=== PATIENT | male | born 1975 | race Caucasian/White ===

== ENCOUNTER 2020-11-03 10:34 | Emergency (ER) | payer BC, SELFPAY ==
--- NOTE | ~2020-11-03 | US_ITS ---
EXAMINATION:US venous doppler LE RT INDICATION:Right lower extremity pain TECHNIQUE: Multiple grayscale, color flow and Doppler images of the right lower extremity deep venous systems were obtained and reviewed. COMPARISON:No prior studies for comparison. FINDINGS: The common femoral, superficial femoral and popliteal veins demonstrate normal respiratory variation, augmentation and compressibility. Color flow is also seen within the posterior tibial, pe roneal, greater saphenous and profunda veins. There is right groin lymphadenopathy with lymph node me asuring 4.4 x 3.6 x 1.5 cm. IMPRESSION: 1: No lower extremity deep venous thrombosis. 2: Right groin lymphadenopathy, likely reactive. Reviewed, dictated and finalized at location B.
[2020-11-03 11:16] VITALS: BP 113/81; PULSE 86; RESP 16; TEMP 36.4; O2SAT 95
[2020-11-03 11:37] LABS: Basophils Absolute Auto 0.1 K/mm3 (0.0-0.1); Basophils Percent Auto 0.7 % (0.2-1.2); Eosinophils Absolute Auto 0.2 K/mm3 (0-0.3); Eosinophils Percent Auto 1.8 % (0-4.4); Hemoglobin 16.3 g/dL (14.0-18.0); Immature Granulocyte Absolute 0.05 K/mm3 (0.00-0.031); Immature Granulocyte Percent A 0.5 % (0-0.5); Lymphocytes Absolute Auto 1.46 K/mm3 (0.9-3.2); Mean Corpuscular Hemoglobin 31.6 pg (26-34); Monocytes Absolute Auto 1.1 K/mm3 (0.1-0.6); Monocytes Percent Auto 11.4 % (2.6-8.5); Neutrophils Absolute Auto 6.9 K/mm3 (1.3-6.7); Neutrophils Percent Auto 70.6 % (45.5-73.1); Platelet Count Result 225 k/mm3 (150-375); Red Blood Count 5.16 M/mm3 (4.6-6.20); Red Cell Distribution Width 13.4 % (11.5-14.5); White Blood Count 9.8 K/mm3 (4.5-10.0)
[2020-11-03 11:46] LABS: Anion Gap 11 mmol/L (8-16); Blood Urea Nitrogen 12 mg/dL (9-20); Calcium 9.6 mg/dL (8.4-10.2); Carbon Dioxide 27 mmol/L (22-30); Chloride 100 mmol/L (98-107); Estimated CRCL calculation 132 ml/min; Estimated Glomerular Filt Rate > 60; Glucose 122 mg/dL (75-110); Potassium 3.4 mmol/L (3.4-5.0); Sodium 138 mmol/L (137-145)
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
[2020-11-03] MEDS: CLINDAMYCIN HCL 150 MG CAP 300 MG PO (12:15)
[2020-11-03 12:53] VITALS: BP 127/80; PULSE 82; RESP 16; O2SAT 97
== END 2020-11-03 12:55 | disposition home or self-care (01) ==
PROVIDERS: Emergency Provider Emergency Medicine; PCP Family Medicine
DX: L03.115 Cellulitis of right lower limb (principal); E78.5 Hyperlipidemia, unspecified; I10 Essential (primary) hypertension; Z87.820 Personal history of traumatic brain injury
CPT/HCPCS: 36415; 80048; 85025; 93971; 99284; A9270

== ENCOUNTER 2022-11-21 15:07 | Observation (INO) | payer BC, SELFPAY ==
--- NOTE | ~2022-11-21 | XR_ITS ---
EXAMINATION: XR retrograde pyelo w/stent LT DATE: 11/22/2022 16:30 INDICATION: Left retrograde ureteral stent placement. TECHNIQUE: 7 fluoroscopic images of the abdomen and pelvis were obtained during procedure performed catalina Hernández. Radiologist was not present for the imaging or procedure. The amount of fluoroscopy time used during this procedure was 0.7 minutes. COMPARISON: 11/22/2022 FINDINGS: No significant change in a small stone in the mid right left ureter projecting near the lateral tip o f the left transverse process of L4. Subsequent images demonstrate catheterization and retrograde con trast injection into the left ureter and renal collecting system. A wire has been advanced into the l eft renal pelvis with subsequent placement of a left internal ureteral stent which is in expected pos ition with loops formed in the left renal pelvis and in the bladder. The ureteral stone is not identi fied on the postcontrast images, unclear whether this is been removed or reflux into the left renal c ollecting system. IMPRESSION: 1. Left ureteral stone with fluoroscopy utilized during left internal ureteral stent placement in exp ected position. Unclear whether the stone has been extracted and would correlate with procedure note for further detail. Reviewed, dictated and finalized at location A. IMPRESSION: 1. Left ureteral stone with fluoroscopy utilized during left internal ureteral stent placement in expected position. Unclear whether the stone has been extrac israel and would correlate with procedure note for further detail.
--- NOTE | ~2022-11-21 | XR_ITS ---
Supine and upright views of the abdomen Clinical history: Preoperative Findings: Bowel gas pattern is nonspecific. No evidence for obstruction or free air. Suspected 4 mm m id left ureteral stone, projecting just lateral of the left L4 transverse process. Additional left lo wer pole renal stone measures 7 mm. IVC filter present. Osseous structures are intact. Impression: Suspected left renal and left ureteral stones, as detailed above. Reviewed, dictated and finalized at location . Impression: Suspected left renal and left ureteral stones, as detailed above.
--- NOTE | ~2022-11-21 | CT_ITS ---
EXAMINATION: CT abdomen pelvis w con DATE: 11/21/2022 16:46 INDICATION: left lower abdominal pain TECHNIQUE: Computed tomography (CT) of the abdomen and pelvis was performed with 100 mL Omnipaque-350 intravenous contrast. Automated exposure control and iterative reconstruction technique were employe d. The dose-length product was 773.76 mGy-cm. COMPARISON: None. FINDINGS: Lower thorax: Bilateral gynecomastia. Mild bibasilar scar/atelectasis. Mild coronary artery calcifica tion. Liver: Normal. Biliary/Gallbladder: Cholelithiasis. No bile duct dilation. Pancreas: No mass or duct dilation. Spleen: Normal. Adrenals:No mass. Kidneys: Delayed left nephrogram. Mild left pelviectasis and caliectasis. 5 x 7 mm stone in the proxi mal left ureter multiple additional nonobstructing bilateral renal calculi are present. No suspicious renal mass. GI tract: Mild distal esophageal and gastric wall edema. Air-filled mildly dilated transverse colon. No small bowel dilation. Normal appendix. Mesentery/Peritoneum: No ascites, mass, or free air. Mild mesenteric stranding surrounding prominent lymph nodes, with fat halos. Retroperitoneum: No mass. Atherosclerotic abdominal aortic and/or arterial calcifications. IVC filter . Pelvis: Prostatomegaly. Incompletely distended urinary bladder. Soft Tissues: Soft tissues and body wall unremarkable. Bones: No acute osseous finding. IMPRESSION: Mild esophagitis/gastritis. 5 x 7 mm stone in the proximal left ureter causing mild obstructive uropathy. Air-filled mildly dilated transverse colon, presumably related to ileus from the obstructive uropathy . Mesenteric panniculitis. Reviewed, dictated and finalized at location K. IMPRESSION: Mild esophagitis/gastritis. 5 x 7 mm stone in the proximal left ureter causing mild obstructive uropathy. Air-filled mildly dilated transverse colon, presumably related to ileus from th e obstructive uropathy. Mesenteric panniculitis.
[2022-11-21 15:26] VITALS: BP 155/85; PULSE 72; RESP 16; TEMP 37.2; O2SAT 96
[2022-11-21 15:54] LABS: Basophils Absolute Auto 0.1 K/mm3 (0.0-0.1); Basophils Percent Auto 0.7 % (0.2-1.2); Eosinophils Absolute Auto 0.1 K/mm3 (0-0.3); Eosinophils Percent Auto 0.6 % (0-4.4); Hematocrit 48.8 % (42.0-52.0); Hemoglobin 16.7 g/dL (14.0-18.0); Immature Granulocyte Absolute 0.05 K/mm3 (0.00-0.031); Immature Granulocyte Percent A 0.4 % (0-0.5); Lymphocytes Percent Auto 15.8 % (18.3-44.2); Mean Corpuscular HGB Conc 34.2 g/dl (32-36); Mean Corpuscular Hemoglobin 31.9 pg (26-34); Mean Corpuscular Volume 93.3 fl (80-100); Mean Platelet Volume 9.4 fl (7.4-10.4); Monocytes Absolute Auto 1.5 K/mm3 (0.1-0.6); Monocytes Percent Auto 11.6 % (2.6-8.5); Neutrophils Percent Auto 70.9 % (45.5-73.1); Platelet Count Result 288 k/mm3 (150-375); Red Blood Count 5.23 M/mm3 (4.6-6.20); White Blood Count 12.6 K/mm3 (4.5-10.0)
[2022-11-21 15:58] LABS: Appearance Urine Cloudy (Clear); Bacteria Urine None Seen /hpf; Bilirubin Urine Negative (Negative); Blood Urine 3+ (Negative); Color Urine Yellow (Yellow); Glucose Urine UA Negative (Negative); Ketones Urine Trace mg/dL (Negative); Leukocyte Esterase Ur Negative LEU/UL (Negative); Nitrate Urine Negative (Negative); Non Pathogenic Casts 0-2; Protein Urine 1+ mg/dL (Negative); RBC Urine 21-50 /hpf (0-2); Specific Grav Ur 1.023 (1.001-1.035); Squamous Epithelial Cell Urine None seen /hpf (Few); WBC Urine 0-5 /hpf
[2022-11-21 16:05] LABS: Add Urine Microscopic? YES
[2022-11-21 16:19] LABS: Alanine Aminotransferase 42 U/L (6-50); Albumin Level 4.4 g/dL (3.5-5.1); Alkaline Phosphatase 115 U/L (38-126); Anion Gap 9 mmol/L (8-16); Aspartate Amino Transferase 33 U/L (17-59); Bilirubin,Total 0.8 mg/dL (0.2-1.3); Blood Urea Nitrogen 13 mg/dL (9-20); Calcium 9.7 mg/dL (8.4-10.2); Carbon Dioxide 28 mmol/L (22-30); Chloride 99 mmol/L (98-107); Estimated CRCL calculation 104 ml/min; Estimated Glomerular Filt Rate > 60; Glucose 87 mg/dL (65-110); Lipase 706 U/L (23-300); Potassium 4.2 mmol/L (3.4-5.0); Sodium 136 mmol/L (137-145)
[2022-11-21] MEDS: MORPHINE SULFATE (*CRX) 4 MG/ML INJ IV PUSH (17:22)
[2022-11-21] MEDS: ONDANSETRON INJ 4 MG/2 ML VIAL IV PUSH (17:22)
[2022-11-21] MEDS: TAMSULOSIN HCL 0.4 MG CAPSULE PO (18:04)
[2022-11-21] MEDS: HYDROmorphone HCL INJ (*CRX) 1 MG/ML SYR 0.5 MG IV PUSH (18:05)
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
--- NOTE | 2022-11-21 19:30 | PC.NURSE ---
This RN assumed care of patient.
[2022-11-21] MEDS: KETOROLAC 30 MG/ML VIAL (*BKC) IV PUSH (19:40)
[2022-11-21 19:42] VITALS: BP 148/95; PULSE 54; RESP 18; O2SAT 96
[2022-11-21 20:30] VITALS: BP 137/87; PULSE 63; RESP 16; TEMP 35.7; O2SAT 96
[2022-11-21 20:51] VITALS: BMI 31.8
--- NOTE | 2022-11-21 21:11 | ADMGEN ---
This patient, Coleman Holder, was admitted to [facility] Surg Room 312-01. Patient/family oriented to hospital policies and general routines including ID bracelet, bed and alarms, visiting hours, pain management, procedures, bathroom and other care routines, personal items, smoking policy, room service/diet, and visiting hours. Information on how to activate the Rapid Response Team has been discussed. Patient/Family are encouraged to report perceived risks to care and to ask questions if they do not understand what they are told or what they should do.
[2022-11-21] MEDS: LACTATED RINGERS 1,000 ML 75 ML IV CONT (21:33)
[2022-11-22] VITALS (12 sets, daily range): BP systolic 116–164; BP diastolic 73–95; PULSE 62–80; RESP 12–20; TEMP 35.9–37.1; O2SAT 94–100
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
[2022-11-22 06:45] LABS: Hematocrit 46.5 % (42.0-52.0); Hemoglobin 15.5 g/dL (14.0-18.0); Mean Corpuscular HGB Conc 33.3 g/dl (32-36); Mean Corpuscular Hemoglobin 31.7 pg (26-34); Mean Corpuscular Volume 95.1 fl (80-100); Mean Platelet Volume 9.3 fl (7.4-10.4); Platelet Count Result 223 k/mm3 (150-375); Red Blood Count 4.89 M/mm3 (4.6-6.20); Red Cell Distribution Width 12.9 % (11.5-14.5); White Blood Count 8.5 K/mm3 (4.5-10.0)
[2022-11-22 06:54] LABS: Anion Gap 5 mmol/L (8-16); Blood Urea Nitrogen 13 mg/dL (9-20); Calcium 8.7 mg/dL (8.4-10.2); Carbon Dioxide 31 mmol/L (22-30); Chloride 101 mmol/L (98-107); Estimated CRCL calculation 102 ml/min; Estimated Glomerular Filt Rate > 60; Glucose 96 mg/dL (65-110); Magnesium 2.2 mg/dL (1.6-2.3); Potassium 3.6 mmol/L (3.4-5.0); Sodium 137 mmol/L (137-145)
[2022-11-22] MEDS: LACTATED RINGERS 1,000 ML 100 ML IV CONT (09:32)
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
--- NOTE | 2022-11-22 13:58 | PM.IMPN ---
Progress Note: A&P Assessment and Plan (1) Calculus of proximal left ureter: Code(s): N20.1 - Calculus of ureter Status: Acute Assessment and Plan: -5X7 mm stone in the proximal left ureter causing mild obstructive uropathy. -consulted urology. plan to go for ureteroscopy this afternoon. NPO since midnight. -IV fluids LR @ 100 ml per hour. -Pain control with prn Eitzen 5-325 mg PO every six hours and morphine 2 mg IV push q 4 hours. (2) Obstructive uropathy: Code(s): N13.9 - Obstructive and reflux uropathy, unspecified Status: Acute (3) Esophagitis with gastritis: Code(s): K29.70 - Gastritis, unspecified, without bleeding; K20.90 - Esophagitis, unspecified without bleeding Status: Acute Assessment and Plan: Patient does not have symptoms. Consulted on decreasing NSAID use. Will add H2 anuj daily. (4) Ileus: Code(s): K56.7 - Ileus, unspecified Status: Acute Assessment and Plan: Last bowel movement was Monday 11/20. Passing flatus, no N/V/D. Bowel sounds present. Continue to monitor for worsening bowel function. Will add bowel regimen since receiving narcotic pain medications. (5) Mesenteric panniculitis: Code(s): K65.4 - Sclerosing mesenteritis Status: Acute Assessment and Plan: -incidental finding on CT. Patient does not report abdominal pain but rather left costovertebral angle tenderness upon admission. CT shows dilated colon with large amount of gas but patient has bowel sounds and last BM was only 2 days ago. Will continue to monitor serial abdominal exams and bowel function. (6) Essential (primary) hypertension: Code(s): I10 - Essential (primary) hypertension Status: Acute Assessment and Plan: -restarted home medication lisinopril 10 mg-hydrochlorothiazide 12.5mg PO daily blood pressures reviewed and well control. (7) Dyslipidemia: Code(s): E78.5 - Hyperlipidemia, unspecified Status: Acute Assessment and Plan: Rosuvastatin 5mg tablet PO daily, restarted. Subjective Date/time seen: 11/22/22 13:58 Interval history: This is a pleasant 47-year-old male with hypertension, hyperlipidemia, and history of traumatic brain injury who presented to the emergency department via private vehicle from home for evaluation of left-sided abdominal pain. Patient provides the following history. She felt fine when he got up this morning and at around 08:00 while at work he developed sudden onset left-sided back pain radiating to the flank and left lower quadrant. He describes the pain as severe and cramping in nature and associated symptoms include nausea and belching. He thought perhaps he was constipated and he took MiraLax but he was unable to have a bowel movement (last normal bowel movement was yesterday). Due to unrelenting symptoms he came in and a CT of the abdomen and pelvis showed several findings including mild esophagitis/gastritis, 5 x 7 mm stone in the proximal left ureter causing mild obstructive uropathy, air filled mildly dilated transverse colon presumably related to ileus, and mesenteric panniculitis. He rarely has indigestion symptoms and has no history of kidney stones or panniculitis. He denies fever, chills, sweats, vomiting, hematuria, and dysuria. No melena or hematochezia. Interval history: 11/22-Mr Holder is doing well today. He has been NPO since midnight waiting for a procedure with urology to intervene on his kidney stone. I spoke with Lashonda, the nurse who said he is on the schedule for this afternoon. He denies pain currently and says he is feeling better. He just is hungry and wants to eat. He does have some tenderness under his right shoulder but he thinks this is from laying in the bed. He denies fever, chills, or body aches. No complaints of dysuria,frequency, or bladder fullness. Review of Systems Review of Systems: All systems reviewed & are unremarkable except as noted in HPI
--- NOTE | 2022-11-22 14:26 | WPDANESEPPF ---
Anes - Initial Pre Proc Eval Procedure: Operation Date: 11/22/22 15:30 Proposed Procedures p Cystoscopy,Left Retrograde Pyelogram Left Stent Placement - Erick Hernández MD Date/Time: 11/22/22 14:26 Surgeon: Jonatan Myles MD Pre Op Diagnosis: Obstructing Kidney Stone Patient Data Age: 47 Gender: M Height: 1.75 m Weight: 97.7 kg Last Vital Signs Temp 36.9 C 11/22/22 13:43 Pulse 73 11/22/22 13:43 Resp 16 11/22/22 13:43 BP 126/73 11/22/22 13:43 Pulse Ox 97 11/22/22 13:43 O2 Del Method Room Air 11/22/22 09:30 Allergies Allergy/AdvReac Type Severity Reaction Status Date / Time No Known Allergies Allergy Verified 11/22/22 14:46 Home Medications Medication Instructions Recorded Confirmed Type ibuprofen 800 mg tablet 800 mg PO TID PRN pain #90 tabs 08/14/22 11/21/22 Rx lisinopril 10 1 tablet PO DAILY #30 tabs 11/16/22 11/21/22 Rx mg-hydrochlorothiazide 12.5 mg tablet rosuvastatin 5 mg tablet 5 mg PO DAILY #30 tabs 11/16/22 11/21/22 Rx Laboratory Tests 11/21/22 11/21/22 11/21/22 15:46 15:48 16:04 WBC 12.6 H K/mm3 (4.5-10.0) RBC 5.23 M/mm3 (4.6-6.20) Hgb 16.7 g/dL (14.0-18.0) Hct 48.8 % (42.0-52.0) MCV 93.3 fl (80-100) MCH 31.9 pg (26-34) MCHC 34.2 g/dl (32-36) RDW 13.0 % (11.5-14.5) Plt Count 288 k/mm3 (150-375) MPV 9.4 fl (7.4-10.4) Immature Gran % (Auto) 0.4 % (0-0.5) Neut % (Auto) 70.9 % (45.5-73.1) Lymph % (Auto) 15.8 L % (18.3-44.2) [place] % (Auto) 11.6 H % (2.6-8.5) Eos % (Auto) 0.6 % (0-4.4) Baso % (Auto) 0.7 % (0.2-1.2) Lymph # (Auto) 2.00 K/mm3 (0.9-3.2) [place] # (Auto) 1.5 H K/mm3 (0.1-0.6) Eos # (Auto) 0.1 K/mm3 (0-0.3) Baso # (Auto) 0.1 K/mm3 (0.0-0.1) Abs Immat Gran (auto) 0.05 H K/mm3 (0.00-0.031) Absolute Neuts (auto) 9.0 H K/mm3 (1.3-6.7) Absolute Nucleated RBC 0.0 K/mm3 (0.0-0.012) Nucleated RBC % 0.0 % (0.0-0.2) Sodium 136 L mmol/L (137-145) Potassium 4.2 mmol/L (3.4-5.0) Chloride 99 mmol/L (98-107) Carbon Dioxide 28 mmol/L (22-30) Anion Gap 9 mmol/L (8-16) BUN 13 mg/dL (9-20) Creatinine 0.90 mg/dL (0.7-1.3) Estim Creat Clear Calc 104 ml/min Estimated GFR > 60 (59 - ) Glucose 87 mg/dL (65-110) Calcium 9.7 mg/dL (8.4-10.2) Magnesium Total Bilirubin 0.8 mg/dL (0.2-1.3) AST 33 U/L (17-59) ALT 42 U/L (6-50) Alkaline Phosphatase 115 U/L (38-126) Total Protein 8.0 g/dL (6.3-8.2) Albumin 4.4 g/dL (3.5-5.1) Lipase 706 H U/L (23-300) Urine Color Yellow (Yellow) Urine Appearance Cloudy H (Clear) Urine pH 6.0 (5.0-9.0) Ur Specific [place] 1.023 (1.001-1.035) Urine Protein 1+ H mg/dL (Negative) Urine Glucose (UA) Negative mg/dL (Negative) Urine Ketones Trace H mg/dL (Negative) Ur Blood (Man) 3+ H (Negative) Urine Nitrate Negative (Negative) Urine Bilirubin Negative (Negative) Urine Urobilinogen 1.0 mg/dL (<2.0) Leukocyte Esterase Rfl Negative MARISOL/UL (Negative) Urine RBC 21-50 H /hpf (0-2) Urine WBC 0-5 /hpf Ur Squamous Epith Cells None seen /hpf (Few) Urine Bacteria None seen /hpf Urine Casts 0-2 11/22/22 06:11 WBC 8.5 K/mm3 (4.5-10.0) RBC 4.89 M/mm3 (4.6-6.20) Hgb 15.5 g/dL (14.0-18.0) Hct 46.5 % (42.0-52.0) MCV 95.1 fl (80-100) MCH 31.7 pg (26-34) MCHC 33.3 g/dl (32-36) RDW 12.9 % (11.5-1
[2022-11-22] MEDS: LACTATED RINGERS 1,000 ML 30 ML IV CONT (14:52)
--- NOTE | 2022-11-22 15:07 | WPDHPUPDATE1 ---
History and Physical Update Update Date/Time: 11/22/22 15:07 History and Physical has been reviewed, including an updated exam of the patient. There are NO changes in the patient's condition. Risks, benefits, and alternatives have been discussed and questions answered. Patient agrees to proceed with procedure.
[2022-11-22] MEDS: LIDOCAINE HCL 2% GEL UROJET 10 ML PKG MUCOUS MEM (15:51)
[2022-11-22 15:57] LABS: Lipase 318 U/L (23-300)
[2022-11-22] MEDS: ceFAZolin 2 GM/D5W 50 ML 2 GM/50 ML BAG IVPB (16:07)
--- NOTE | 2022-11-22 16:19 | W.PM.PROC2 ---
Procedure Note - Detailed Date of Procedure 11/22/22 Pre-op Diagnosis Obstructing Kidney Stone Post-op Diagnosis Same Procedure Performed cystoscopy, left retrograde pyelogram, left ureteral stent insertion Surgeon Erick Hernández MD Anesthesia General Findings - Moderate left hydronephrosis -7mm left mid ureteral stone and multiple renal stones -small stones present the bladder Description of Procedure Informed consent was obtained. Patient taken the operating. He was given preoperative IV antibiotics. He was induced with anesthesia. He was prepped and draped normal sterile fashion. A 22 cystoscope was inserted through the urethra into the bladder. Subtle bladder revealed no mucosal abnormalities. Patient small stones (no larger than 1mm) present inside the bladder. Patient had bilateral orthotopic ureteral orifices. We then focused on the left ureteral orifice. Retrograde pyelogram was performed. Prior to contrast the 7mm stone was identified in the mid ureter and nonobstructing stones present in kidney. Retrograde pyelogram revealed moderate hydronephrosis above the level of the obstructing ureteral stone. Able to pass a wire into the renal pelvis and over wire passed a 4.8 variable length stent with a curl in renal pelvis and bladder. Bladder was emptied . Lidocaine was instilled. Patient was taken recovery room stable condition Urine Output 300 Complications No immediate complications Condition Stable Disposition PACU
[2022-11-22 17:14] LABS: Amylase 96 U/L (30-110)
[2022-11-22] MEDS: DOCUSATE SODIUM 100 MG CAPSULE PO (19:58)
[2022-11-22] MEDS: HYDROcodone/acetaminophen (*CRX) 5-325 MG TABLET 1 TAB PO (19:59)
[2022-11-22] MEDS: FAMOTIDINE 20 MG TABLET PO (19:59)
[2022-11-23] VITALS: BP 109/60; PULSE 69; RESP 16; TEMP 35.7; O2SAT 95
[2022-11-23 04:00] VITALS: BP 130/82; PULSE 60; RESP 16; TEMP 35.6; O2SAT 97
[2022-11-23 06:32] LABS: Basophils Percent Auto 0.3 % (0.2-1.2); Eosinophils Percent Auto 0.2 % (0-4.4); Hematocrit 46.1 % (42.0-52.0); Hemoglobin 15.5 g/dL (14.0-18.0); Immature Granulocyte Absolute 0.06 K/mm3 (0.00-0.031); Immature Granulocyte Percent A 0.5 % (0-0.5); Lymphocytes Absolute Auto 1.08 K/mm3 (0.9-3.2); Mean Corpuscular HGB Conc 33.6 g/dl (32-36); Mean Corpuscular Hemoglobin 31.4 pg (26-34); Mean Corpuscular Volume 93.5 fl (80-100); Mean Platelet Volume 9.2 fl (7.4-10.4); Monocytes Absolute Auto 1.1 K/mm3 (0.1-0.6); Monocytes Percent Auto 8.7 % (2.6-8.5); Neutrophils Absolute Auto 9.8 K/mm3 (1.3-6.7); Neutrophils Percent Auto 81.3 % (45.5-73.1); Platelet Count Result 264 k/mm3 (150-375); Red Blood Count 4.93 M/mm3 (4.6-6.20); Red Cell Distribution Width 12.5 % (11.5-14.5)
[2022-11-23 06:41] LABS: Anion Gap 2 mmol/L (8-16); Blood Urea Nitrogen 13 mg/dL (9-20); Calcium 8.8 mg/dL (8.4-10.2); Carbon Dioxide 32 mmol/L (22-30); Chloride 103 mmol/L (98-107); Estimated CRCL calculation 113 ml/min; Estimated Glomerular Filt Rate > 60; Glucose 78 mg/dL (65-110); Magnesium 2.2 mg/dL (1.6-2.3); Phosphorus 3.7 mg/dL (2.5-4.5); Potassium 4.2 mmol/L (3.4-5.0); Sodium 137 mmol/L (137-145)
[2022-11-23 07:29] VITALS: BP 142/85; PULSE 52; RESP 16; TEMP 35.7; O2SAT 97
--- NOTE | 2022-11-23 07:30 | P.PNAN_ITS ---
Anes - Prog Note Post-Op Date/Time: 11/23/22 07:30 Cardiovascular status: normal Respiratory status: normal Airway patency: baseline Mental status: baseline Post-Op hydration status: normal Vital Signs: Last Vital Signs Temp 35.7 C L 11/23/22 07:29 Pulse 52 L 11/23/22 07:29 Resp 16 11/23/22 07:29 BP 142/85 H 11/23/22 07:29 Pulse Ox 97 11/23/22 07:29 O2 Del Method Room Air 11/22/22 20:00 O2 Flow Rate 10 11/22/22 16:30 Pain Score (VAS): 08/04 I/O: Intake & Output 11/22/22 11/22/22 11/23/22 15:59 23:59 07:59 Intake Total 1000 100 800 Output Total 300 600 400 Balance 700 -500 400 Laboratory Tests 11/23/22 06:08 11/23/22 06:08 11/22/22 11/23/22 06:11 06:08 WBC 12.0 H RBC 4.93 Hgb 15.5 Hct 46.1 MCV 93.5 MCH 31.4 MCHC 33.6 RDW 12.5 Plt Count 264 MPV 9.2 Immature Gran % (Auto) 0.5 Neut % (Auto) 81.3 H Lymph % (Auto) 9.0 L [place] % (Auto) 8.7 H Eos % (Auto) 0.2 Baso % (Auto) 0.3 Lymph # (Auto) 1.08 [place] # (Auto) 1.1 H Eos # (Auto) 0.0 Baso # (Auto) 0.0 Abs Immat Gran (auto) 0.06 H Absolute Neuts (auto) 9.8 H Absolute Nucleated RBC 0.0 Nucleated RBC % 0.0 Sodium 137 Potassium 4.2 Chloride 103 Carbon Dioxide 32 H Anion Gap 2 L BUN 13 Creatinine 0.80 Estim Creat Clear Calc 113 Estimated GFR > 60 Glucose 78 Calcium 8.8 Phosphorus 3.7 Magnesium 2.2 Albumin 4.0 Amylase 96 Lipase 318 H Post-procedural complaints: none Patient Feedback: Patient satisfied with anesthetic care.
[2022-11-23] MEDS: DOCUSATE SODIUM 100 MG CAPSULE PO (08:00)
[2022-11-23] MEDS: lisinopriL 10 MG TABLET PO (08:01)
[2022-11-23] MEDS: ROSUVASTATIN 5 MG TABLET PO (08:01)
[2022-11-23] MEDS: FAMOTIDINE 20 MG TABLET PO (08:01)
[2022-11-23] MEDS: hydroCHLOROthiazide 12.5 MG CAPSULE PO (08:02)
[2022-11-23 08:08] VITALS: O2SAT 98
--- NOTE | 2022-11-23 11:27 | PM.DS ---
DS: Admitting Diagnosis Discharge Date , 11/23 Admitting Diagnosis Nephrolithiasis DS: Discharge Diagnosis Discharge Diagnosis Plan Assessment and Plan (1) Calculus of proximal left ureter: ?Code(s): N20.1 - Calculus of ureter ?Status:?Acute ?Assessment and Plan: -5X7 mm stone in the proximal left ureter causing mild obstructive uropathy. -consulted urology. plan to go for ureteroscopy this afternoon. NPO since midnight. -IV fluids LR @ 100 ml per hour. -Pain control with prn [place] 5-325 mg PO every six hours and morphine 2 mg IV push q 4 hours. (2) Obstructive uropathy: ?Code(s): N13.9 - Obstructive and reflux uropathy, unspecified ?Status:?Acute (3) Esophagitis with gastritis: ?Code(s): K29.70 - Gastritis, unspecified, without bleeding; K20.90 - Esophagitis, unspecified without bleeding ?Status:?Acute ?Assessment and Plan: Patient does not have symptoms. Consulted on decreasing NSAID use. Will add H2 anuj daily. (4) Ileus: ?Code(s): K56.7 - Ileus, unspecified ?Status:?Acute ?Assessment and Plan: Last bowel movement was Monday 11/20. Passing flatus, no N/V/D. Bowel sounds present. Continue to monitor for worsening bowel function. Will add bowel regimen since receiving narcotic pain medications.? (5) Mesenteric panniculitis: ?Code(s): K65.4 - Sclerosing mesenteritis ?Status:?Acute ?Assessment and Plan: -incidental finding on CT. Patient does not report abdominal pain but rather left costovertebral angle tenderness upon admission. CT shows dilated colon with large amount of gas but patient has bowel sounds and last BM was only 2 days ago. Will continue to monitor serial abdominal exams and bowel function. (6) Essential (primary) hypertension: ?Code(s): I10 - Essential (primary) hypertension ?Status:?Acute ?Assessment and Plan: -restarted home medication lisinopril 10 mg-hydrochlorothiazide 12.5mg PO daily blood pressures reviewed and well control.(7) Dyslipidemia: ?Code(s): E78.5 - Hyperlipidemia, unspecified ?Status:?Acute ?Assessment and Plan: Rosuvastatin 5mg tablet PO daily, restarted. DS: Summary Hospital Course Reason for hospitalization: Nephrolithiasis Hospital Course: Interval history: This is a pleasant 47-year-old male with hypertension, hyperlipidemia, and history of traumatic brain injury who presented to the emergency department via private vehicle from home for evaluation of left-sided abdominal pain. Patient provides the following history. She felt fine when he got up this morning and at around 08:00 while at work he developed sudden onset left-sided back pain radiating to the flank and left lower quadrant. He describes the pain as severe and cramping in nature and associated symptoms include nausea and belching. He thought perhaps he was constipated and he took MiraLax but he was unable to have a bowel movement (last normal bowel movement was yesterday). Due to unrelenting symptoms he came in and a CT of the abdomen and pelvis showed several findings including mild esophagitis/gastritis, 5 x 7 mm stone in the proximal left ureter causing mild obstructive uropathy, air filled mildly dilated transverse colon presumably related to ileus, and mesenteric panniculitis. He rarely has indigestion symptoms and has no history of kidney stones or panniculitis. He denies fever, chills, sweats, vomiting, hematuria, and dysuria. No melena or hematochezia. Interval history: 11/22-Mr Holder is doing well today. He has been NPO since midnight waiting for a procedure with urology to intervene on his kidney stone. I spoke with Lashonda, the nurse who said he is on the schedule for this afternoon. He denies pain currently and says he is feeling better. He just is hungry and wants to eat. He does have some tenderness under his right shoulder but he thinks this is from laying in the bed. He denies fever, chills, or body aches. No complaints
[2022-11-23 11:33] VITALS: BP 140/67; PULSE 61; RESP 18; TEMP 36.2; O2SAT 97
--- NOTE | 2022-11-23 14:15 | WPDUROPN2 ---
Progress Note: A&P Assessment and Plan (1) Calculus of proximal left ureter: Code(s): N20.1 - Calculus of ureter Status: Acute Assessment and Plan: Stent in place, KUB positive for stone. Plan for Left ESWL next Sunday. Urine culture sent today. Ok to discharge home. Subjective Subjective Date/Time Seen: 11/23/22 14:15 Post Op day: 1 Interval history: POD#! Cystoscopy, left retrograde pyelogram, left stent placement Patient tolerating stent well without much pain. Tolerating diet and activity well also. Review of Systems Cardiovascular: Cardiovascular: Denies chest pain Respiratory: Respiratory: Reports no additional respiratory complaints Gastrointestinal: Gastrointestinal: Denies abdominal pain Genitourinary: Genitourinary: Reports hematuria, Denies dysuria, Denies flank pain, Reports urinary frequency, Denies urinary hesitancy, Denies urinary incontinence and Denies urinary urgency Exam Const: General: cooperative and comfortable Resp: Effort & Inspection: normal respiratory effort Cardio: Rate: regular rate GI: GI Palp: Yes Soft to palpation and No Tenderness to palpation present (GI) : General: Yes no CVA tenderness Extrem: Right lower extremity: no edema Left lower extremity: no edema Objective Data Vital Signs Vital Signs: Vital Signs - 24 hr 11/22/22 14:49 11/22/22 16:23 11/22/22 16:30 Temperature 98.7 F 97.8 F Pulse Rate 80 71 74 Respiratory Rate 16 12 13 Blood Pressure 146/85 H 116/78 119/79 Pulse Oximetry 96 100 100 Oxygen Delivery Room Air Simple Face Mask Simple Face Mask Oxygen Flow Rate 10 10 11/22/22 16:45 11/22/22 17:00 11/22/22 17:15 Temperature Pulse Rate 76 68 69 Respiratory Rate 13 14 14 Blood Pressure 155/86 H 149/95 H 147/80 H Pulse Oximetry 96 97 96 Oxygen Delivery Room Air Room Air Room Air Oxygen Flow Rate 11/22/22 17:35 11/22/22 17:50 11/22/22 18:20 Temperature 96.9 F L 96.6 F L 96.8 F L Pulse Rate 75 62 72 Respiratory Rate 18 20 16 Blood Pressure 151/91 H 164/80 H 157/79 H Pulse Oximetry 96 96 94 Oxygen Delivery Oxygen Flow Rate 11/22/22 19:20 11/22/22 20:00 11/23/22 00:00 Temperature 97.7 F 96.2 F L Pulse Rate 75 69 Respiratory Rate 16 16 Blood Pressure 147/73 H 109/60 Pulse Oximetry 96 95 Oxygen Delivery Room Air Oxygen Flow Rate 11/23/22 04:00 11/23/22 07:29 11/23/22 08:08 Temperature 96.1 F L 96.3 F L Pulse Rate 60 52 L Respiratory Rate 16 16 Blood Pressure 130/82 142/85 H Pulse Oximetry 97 97 98 Oxygen Delivery Room Air Oxygen Flow Rate 11/23/22 11:33 Temperature 97.1 F L Pulse Rate 61 Respiratory Rate 18 Blood Pressure 140/67 Pulse Oximetry 97 Oxygen Delivery Oxygen Flow Rate Intake/Output Intake/Output: Intake & Output 11/20/22 11/21/22 11/22/22 11/23/22 23:59 23:59 23:59 23:59 Intake Total 1100 1040 Output Total 1225 450 Balance -125 590 Meds/Results Radiology Results: ITS Impressions Abdomen/Pelvis CT 11/21/22 16:54 IMPRESSION: Mild esophagitis/gastritis. 5 x 7 mm stone in the proximal left ureter causing mild obstructive uropathy. Air-filled mildly dilated transverse colon, presumably related to ileus from the obstructive uropathy. Mesenteric panniculitis. Abdomen X-Ray 11/22/22 05:53 Impression: Suspected left renal and left ureteral stones, as detailed above. Retrograde Pyelogram 11/22/22 16:47 IMPRESSION: 1. Left ureteral stone with fluoroscopy utilized during left internal ureteral stent placement in expected position. Unclear whether the stone has been extracted and would correlate with procedure note for further detail. Labs Labs: Laboratory Results - last 24 hr 11/22/22 11/23/22 06:11 06:08 WBC 12.0 H RBC 4.93 Hgb 15.5 Hct 46.1 MCV 93.5 MCH 31.4 MCHC 33.6 RDW 12.5 Plt Count 264 MPV 9.2 Immature Gran % (Auto) 0.5 Neut % (Auto) 81.3 H Lymph % (
== END 2022-11-23 13:22 | disposition home or self-care (01) ==
LOC: ANHED 18:58 → ANH3MEDSUR 20:43
PROVIDERS: Emergency Medicine; Nurse Practitioner Acute Care; Physician Assistant; Urology; Admitting Provider Internal Medicine; Emergency Provider Nurse Practitioner Family; PCP Family Medicine; Visit Provider Chiropractor
PROC: (CPT 52352; principal; 2022-11-22 15:30)
DX: N20.1 Calculus of ureter (principal); N13.9 Obstructive and reflux uropathy, unspecified; K29.70 Gastritis, unspecified, without bleeding; K20.90 Esophagitis, unspecified without bleeding; K56.7 Ileus, unspecified; K65.4 Sclerosing mesenteritis; I10 Essential (primary) hypertension; E78.5 Hyperlipidemia, unspecified; E66.9 Obesity, unspecified; Z68.31 Body mass index [BMI] 31.0-31.9, adult; R73.03 Prediabetes; F10.90 Alcohol use, unspecified, uncomplicated; Z87.820 Personal history of traumatic brain injury; Z82.49 Family history of ischemic heart disease and other diseases of the circulatory system; Z79.1 Long term (current) use of non-steroidal anti-inflammatories (NSAID); Z79.899 Other long term (current) drug therapy
CPT/HCPCS: 52332; 36415; 74018; 74177; 74420; 80048; 80053; 80069; 81001; 82150; 83690; 83735; 85025; 85027; 87086; 96361; 96374; 96375; 99285; A9270; C1758; C1769; C2617; G0378; J0690; J1100; J1170; J1885; J2250; J2270; J2405; J2704; J3010; J7120; Q9966; Q9967

== ENCOUNTER 2022-11-27 15:05 | Outpatient (CLI) | payer BC, SELFPAY ==
--- NOTE | 2022-11-27 15:18 | ECG_ITS ---
Measurements Intervals [place] Rate: 86 P: 37 CT: 151 QRS: 10 QRSD: 102 T: 48 QT: 350 QTc: 419 Interpretive Statements SINUS RHYTHM POOR R WAVE PROGRESSION, ANTERIOR LEADS CONSIDER INFERIOR INFARCT, AGE INDETERMINATE ABNORMAL ECG NO PREVIOUS ECG AVAILABLE FOR COMPARISON Electronically Signed On 11-27-2022 15:44:20 CDT by Delmar Rosado D.O.
[2022-11-27 15:46] LABS: Prothrombin Time 13.2 Seconds (11.1-14.7)
[2022-11-27 15:47] LABS: Partial Thromboplastin Time 27.8 SECONDS (22.3-36.8)
== END 2022-11-27 15:06 | disposition home or self-care (01) ==
PROVIDERS: PCP Family Medicine; Visit Provider Urology
DX: N20.1 Calculus of ureter (principal); I10 Essential (primary) hypertension; Z01.818 Encounter for other preprocedural examination; R94.31 Abnormal electrocardiogram [ECG] [EKG]
CPT/HCPCS: 36415; 85610; 85730; 93005

== ENCOUNTER 2022-12-01 03:34 | Day surgery (SDC) | payer BC, SELFPAY ==
[2022-11-24 10:09] VITALS: BMI 31.7
--- NOTE | 2022-11-24 10:13 | PC.NURSE ---
Report to the Outpatient Waiting Room, entrance under the green pavilion located off [facility], at time 6:00 on date 12/01/22. Planned Procedure Time: 7:30. Time changes happen often and if your time is changed the preop area will call you the afternoon before. - You and your visitor will be asked to self-screen and do not enter if you have any COVID symptoms. - A mask is optional within the hospital at this time. Patients may have clear liquids (water, carbonated beverages, clear teas, apple juice) until 3 hours prior to surgery (4:30) with a maximum of 20 ounces. - No food from midnight until time of surgery Take the following medications with a SIP of water the morning of surgery: ANTIBIOTIC (IF STILL TAKING) DO NOT STOP ANY OF YOUR OTHER PRESCRIPTION MEDICATIONS PRIOR TO SURGERY ?EXCEPT THE FOLLOWING Medications to discontinue per physician: N/A Date to take last dose: N/A Please no make-up, nail frisian, hairspray, perfume, deodorant, or body powder the day of surgery. No jewelry (including any body piercings) or valuables the day of surgery, leave them at home. Please take a shower or bath the night before, or the morning of, surgery with an antibacterial soap. Wear comfortable, loose fitting clothing. - Jewelry must be removed prior to entering the operating room. Rings and piercings that are not removed may be cut off. - The hospital will not accept responsibility for valuables. - Please leave all valuables, including medications, at home the day of surgery. If you are going home after surgery, a licensed local hazmat driver must drive you home. - NO public transportation without another adult if you receive anesthesia. - We recommend that an adult stay with you for 24 hours following discharge. - We also recommend that you do not drive, make important decision, drink alcoholic beverages, or take any drugs that were not prescribed by your health care provider for at least 24 hours after your discharge time. Follow any additional instructions given to you from your surgeon. If you or anyone in your household have experienced Covid symptoms in the past week, please notify your surgeon or the nurse liaison at the phone number below for possible testing. Telephone instructions given to PT - RAFITA FIELDS and asked if any additional questions and then verbalized understanding. Patient advised to call surgeon office or pre surgery nurse liaison [phone] if any additional questions.
[2022-12-01] VITALS (7 sets, daily range): BP systolic 109–158; BP diastolic 71–84; PULSE 54–75; RESP 12–16; TEMP 36.2; O2SAT 96–100; BMI 31.1
--- NOTE | ~2022-12-01 | XR_ITS ---
Supine and upright views of the abdomen Clinical history: Left-sided renal stone COMPARISON: 11/22/2022 Findings: Bowel gas pattern is nonspecific. No evidence for obstruction or free air. IVC filter in pl ezra. Left ureteral stent in place. Left renal stones are present. Suspect a stone adjacent to the shoaib y proximal portion of the ureteral stent. Osseous structures are intact. Impression: Left renal stones. Left ureteral stent. Suspected small stone adjacent to the very proximal portion of the left ureteral stent. Reviewed, dictated and finalized at location M. Impression: Left renal stones. Left ureteral stent. Suspected small stone adjacent to the very proximal portio n of the left ureteral stent.
[2022-12-01] MEDS: LACTATED RINGERS 1,000 ML 30 ML IV CONT (06:40)
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
--- NOTE | 2022-12-01 07:30 | WPDHPUPDATE1 ---
History and Physical Update Update Date/Time: 12/01/22 07:30 History and Physical has been reviewed, including an updated exam of the patient. There are NO changes in the patient's condition. Risks, benefits, and alternatives have been discussed and questions answered. Patient agrees to proceed with procedure. Proceed with left ureteral/renal eswl
[2022-12-01] MEDS: ceFAZolin 2 GM/D5W 50 ML 2 GM/50 ML BAG IVPB (07:47)
--- NOTE | 2022-12-01 08:12 | P.OP_ITS ---
Procedure Note - Detailed Date of Procedure 12/01/22 Pre-op Diagnosis left ureteral stone Post-op Diagnosis Same Procedure Performed Lithotripsy of left proximal ureteral calculus 4-5 mm Surgeon Yahir Luna MD Anesthesia General Description of Procedure Patient is taken to the operative suite correctly identified. Once anesthesia was obtained the stone was localized in both planes. Two thousand five hundred shocks were given to the stone. Patient tolerated procedure well without any complications was taken recovery room stable condition. He will follow-up in 7- 10 days with KUB. This completes dictation. Please send a copy this op note to the office Packing Yes Pathology None sent Complications No immediate complications Condition Stable Disposition PACU
== END 2022-12-01 09:58 | disposition home or self-care (01) ==
PROVIDERS: PCP Family Medicine; Visit Provider Urology
PROC: (CPT 50590; principal; 2022-12-01 07:30)
DX: N20.1 Calculus of ureter (principal); I10 Essential (primary) hypertension; E78.5 Hyperlipidemia, unspecified; Z87.820 Personal history of traumatic brain injury; E66.9 Obesity, unspecified; Z68.31 Body mass index [BMI] 31.0-31.9, adult
CPT/HCPCS: 50590; 74018; J0690; J1100; J2250; J2405; J2704; J3010; J7120

== ENCOUNTER 2023-01-07 02:41 | Emergency (ER) | payer BC, SELFPAY ==
--- NOTE | ~2023-01-07 | CT_ITS ---
EXAMINATION: CT abdomen pelvis wo con DATE: 01/07/2023 04:04 INDICATION: Left flank pain. TECHNIQUE: Computed tomography (CT) of the abdomen and pelvis was performed without intravenous contr ast. Automated exposure control and iterative reconstruction technique were employed. The dose-length product was 980.95 mGy-cm. COMPARISON: CT abdomen and pelvis 11/21/2022 FINDINGS: The visualized portions of the lung bases demonstrate mild atelectasis. No pleural effusion . The heart size is normal. No pericardial effusion. The liver is normal. There are gallstones in the gallbladder, which is normal in size. The spleen, pancreas, and adrenal glands are normal. There are 2 stones in right kidney measuring up to 4 mm. There are 4 stones in left kidney measuring up to 7 m m. There is a 3 mm stone in left renal pelvis. There is a left internal ureteral stent in expected po sition. There are two 1-2 mm stones in the bladder. The prostate is moderately enlarged. There are bi lateral inguinal hernias containing fat. There are no dilated loops of bowel. The appendix is normal. There is a filter in the right common iliac vein. There are no pathologically enlarged lymph nodes. There is no ascites. 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 There is mild thoracic and lumbar spondylosis. IMPRESSION: 1. 3 mm stone in left renal pelvis with left internal ureteral stent in expected position. 2. Bilateral nonobstructing kidney stones. 3. Small bladder stones. Reviewed, dictated and finalized at location E. IMPRESSION: 1. 3 mm stone in left renal pelvis with left internal ureteral stent in expecte d position. 2. Bilateral nonobstructing kidney stones. 3. Small bladder stones.
[2023-01-07 02:49] VITALS: BP 142/92; PULSE 74; RESP 16; TEMP 36.7; O2SAT 97
[2023-01-07] MEDS: ACETAMINOPHEN 500 MG TABLET 1000 MG PO (04:20)
[2023-01-07] MEDS: HYDROmorphone HCL INJ (*CRX) 1 MG/ML SYR 0.5 MG IV PUSH (04:20)
[2023-01-07 04:26] LABS: Basophils Absolute Auto 0.1 K/mm3 (0.0-0.1); Basophils Percent Auto 0.6 % (0.2-1.2); Eosinophils Absolute Auto 0.1 K/mm3 (0-0.3); Eosinophils Percent Auto 1.2 % (0-4.4); Hematocrit 44.9 % (42.0-52.0); Hemoglobin 15.4 g/dL (14.0-18.0); Immature Granulocyte Absolute 0.04 K/mm3 (0.00-0.031); Immature Granulocyte Percent A 0.4 % (0-0.5); Lymphocytes Absolute Auto 1.45 K/mm3 (0.9-3.2); Mean Corpuscular HGB Conc 34.3 g/dl (32-36); Mean Corpuscular Volume 93.3 fl (80-100); Mean Platelet Volume 9.1 fl (7.4-10.4); Monocytes Absolute Auto 0.8 K/mm3 (0.1-0.6); Monocytes Percent Auto 8.4 % (2.6-8.5); Neutrophils Absolute Auto 7.2 K/mm3 (1.3-6.7); Neutrophils Percent Auto 74.4 % (45.5-73.1); Platelet Count Result 234 k/mm3 (150-375); Red Blood Count 4.81 M/mm3 (4.6-6.20); Red Cell Distribution Width 12.9 % (11.5-14.5); White Blood Count 9.7 K/mm3 (4.5-10.0)
[2023-01-07 04:35] LABS: Anion Gap 5 mmol/L (8-16); Blood Urea Nitrogen 11 mg/dL (9-20); Calcium 8.8 mg/dL (8.4-10.2); Carbon Dioxide 29 mmol/L (22-30); Chloride 100 mmol/L (98-107); Estimated CRCL calculation 128 ml/min; Estimated Glomerular Filt Rate > 60; Glucose 114 mg/dL (65-110); Potassium 3.3 mmol/L (3.4-5.0); Sodium 134 mmol/L (137-145)
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
[2023-01-07 04:58] LABS: Appearance Urine Cloudy (Clear); Bacteria Urine None Seen /hpf; Bilirubin Urine Negative (Negative); Blood Urine 3+ (Negative); Color Urine Yellow (Yellow); Glucose Urine UA Negative (Negative); Ketones Urine Negative (Negative); Leukocyte Esterase Ur 1+ LEU/UL (Negative); Need Manual Microscopic Reviewed; Nitrate Urine Negative (Negative); Non Pathogenic Casts 0-2; Protein Urine 3+ mg/dL (Negative); RBC Urine >100 /hpf (0-2); Specific Grav Ur 1.024 (1.001-1.035); Squamous Epithelial Cell Urine None seen /hpf (Few); Urobilinogen Urine 0.2 mg/dL (<2.0); pH Urine 5.5 (5.0-9.0)
[2023-01-07 05:01] LABS: Add Urine Microscopic? YES
[2023-01-07 05:05] LABS: Glucose Point of Care 114 mg/dl (65-105)
[2023-01-07] MEDS: CEPHALEXIN 500 MG CAPSULE PO (06:45)
[2023-01-07] MEDS: KETOROLAC 15 MG/ML VIAL (*BKC) IV PUSH (06:45)
[2023-01-07 06:58] VITALS: PULSE 72; RESP 15; O2SAT 98
== END 2023-01-07 06:59 | disposition home or self-care (01) ==
PROVIDERS: Emergency Provider Emergency Medicine; PCP Family Medicine
DX: N20.0 Calculus of kidney (principal); E78.5 Hyperlipidemia, unspecified; I10 Essential (primary) hypertension; Z87.820 Personal history of traumatic brain injury; R73.03 Prediabetes; Z96.0 Presence of urogenital implants
CPT/HCPCS: 36415; 74176; 80048; 81001; 82948; 85025; 87086; 87088; 96374; 96375; 99284; A9270; J1170; J1885

== ENCOUNTER 2023-02-02 03:10 | Day surgery (SDC) | payer BC, SELFPAY ==
[2023-01-18 09:24] VITALS: BMI 33.2
--- NOTE | 2023-01-18 09:28 | PC.NURSE ---
Addendum entered by Lillian Granda RN 01/31/23 15:33: VERIFIED NO CHANGES IN PT HX SINCE 01/18/23 INTERVIEW; MEDS UPDATED. UPDATED INSTRUCTIONS GIVEN. ARRIVAL TIME 1030/OR TIME 1230. NO MEDS TO TAKE ON DOS. Original Note: Report to the Outpatient Waiting Room, entrance under the green pavilion located off [facility], at time 0730 on date 01/19/23. Planned Procedure Time: 0930. Time changes happen often and if your time is changed the preop area will call you the afternoon before. - You and your visitor will be asked to self-screen and do not enter if you have any COVID symptoms. - A mask is optional within the hospital at this time. Patients may have clear liquids (water, carbonated beverages, clear teas, apple juice) until 3 hours prior to surgery with a maximum of 20 ounces. - No food from midnight until time of surgery Take the following medications with a SIP of water the morning of surgery: ANTIBIOTIC, PAIN PILL IF NEEDED DO NOT STOP ANY OF YOUR OTHER PRESCRIPTION MEDICATIONS PRIOR TO SURGERY ?EXCEPT THE FOLLOWING Medications to discontinue per physician: IBUPROFEN Date to take last dose: PER DR. HURLEY (PT TOOK 01/18 AM) Please no make-up, nail thai, hairspray, perfume, deodorant, or body powder the day of surgery. No jewelry (including any body piercings) or valuables the day of surgery, leave them at home. Please take a shower or bath the night before, or the morning of, surgery with an antibacterial soap. Wear comfortable, loose fitting clothing. - Jewelry must be removed prior to entering the operating room. Rings and piercings that are not removed may be cut off. - The hospital will not accept responsibility for valuables. - Please leave all valuables, including medications, at home the day of surgery. If you are going home after surgery, a licensed driver retraining instructor must drive you home. - NO public transportation without another adult if you receive anesthesia. - We recommend that an adult stay with you for 24 hours following discharge. - We also recommend that you do not drive, make important decision, drink alcoholic beverages, or take any drugs that were not prescribed by your health care provider for at least 24 hours after your discharge time. Follow any additional instructions given to you from your surgeon. If you or anyone in your household have experienced Covid symptoms in the past week, please notify your surgeon or the nurse liaison at the phone number below for possible testing. Telephone instructions given to MILO FIELDS and asked if any additional questions and then verbalized understanding. Patient advised to call surgeon office or pre surgery nurse liaison [phone] if any additional questions.
[2023-02-02] VITALS (8 sets, daily range): BP systolic 111–149; BP diastolic 69–91; PULSE 56–74; RESP 12–20; TEMP 36.5–36.6; O2SAT 98–100
--- NOTE | ~2023-02-02 | XR_ITS ---
EXAMINATION: XR abdomen/kub 1V INDICATION: Left nephrolithiasis TECHNIQUE: Supine views of the abdomen were obtained on 2 radiographs. COMPARISON: 12/01/2022 FINDINGS: A left internal ureteral stent is in expected position. There is a 9 mm stone of the left k idney lower pole. There is a 5 mm stone in the left kidney upper pole. No additional urolithiasis is identified. The visualized lung bases are clear. The bowel gas pattern is normal. There is an IVC dwayne ter with a fractured strut. IMPRESSION: 1. Left nephrolithiasis with left internal ureteral stent in expected position. Reviewed, dictated and finalized at location B.
--- NOTE | 2023-02-02 07:15 | WPDHPUPDATE1 ---
History and Physical Update Update Date/Time: 02/02/23 07:15 History and Physical has been reviewed, including an updated exam of the patient. There are NO changes in the patient's condition. Risks, benefits, and alternatives have been discussed and questions answered. Patient agrees to proceed with procedure.
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
[2023-02-02] MEDS: LACTATED RINGERS 1,000 ML 30 ML IV CONT (10:30)
[2023-02-02 10:53] LABS: Appearance Urine Clear (Clear); Bacteria Urine None Seen /hpf; Bilirubin Urine Negative (Negative); Blood Urine 1+ (Negative); Color Urine Yellow (Yellow); Glucose Urine UA Negative (Negative); Ketones Urine Negative (Negative); Leukocyte Esterase Ur 1+ LEU/UL (Negative); Nitrate Urine Negative (Negative); Non Pathogenic Casts 0-2; Protein Urine 1+ mg/dL (Negative); Specific Grav Ur 1.023 (1.001-1.035); Squamous Epithelial Cell Urine None seen /hpf (Few)
[2023-02-02 11:04] LABS: Add Urine Microscopic? YES
[2023-02-02 11:09] LABS: Prothrombin Time 13.3 Seconds (11.1-14.7)
[2023-02-02 11:10] LABS: Partial Thromboplastin Time 27.2 SECONDS (22.3-36.8)
[2023-02-02] MEDS: ceFAZolin 2 GM/D5W 50 ML 2 GM/50 ML BAG IVPB (11:48)
--- NOTE | 2023-02-02 12:01 | W.PM.PROC2 ---
Procedure Note - Detailed Date of Procedure 02/02/23 Pre-op Diagnosis Left Renal Stone Post-op Diagnosis Same Procedure Performed Cystoscopy, left ureteral stent removal, left ESWL Surgeon Tevin Blood MD Anesthesia General Description of Procedure The patient was brought to the operative suite where he was placed in the supine position on the Dornier lithotripter table. Flexible cystoscopy was undertaken with a 16F flexible cystoscopy. There were no urethral strictures. The prostatic urethra estimated length was 1.5cm. There was no obstruction of the prostatic urethra. The bladder mucosa was normal and there was a single, orthotopic ureteral orifice bilaterally. the tip of the indwelling ureteral stent was grasped and the stent was removed with ease. The focal point of the lithotriptor was then placed on a 9mm left lower calyceal calculus. A total of 2500 shocks were delivered at a power setting of 1-4. There appeared to be good fragmentation of the stone. The patient tolerated the procedure well and was taken to the recovery room in good condition. Drains No Packing No Pathology None sent Complications No immediate complications Condition Stable Disposition PACU
== END 2023-02-02 13:45 | disposition home or self-care (01) ==
PROVIDERS: PCP Family Medicine; Visit Provider Urology
PROC: (CPT 50590; principal; 2023-02-02 12:30)
DX: N20.0 Calculus of kidney (principal); I10 Essential (primary) hypertension; E78.5 Hyperlipidemia, unspecified; Z87.820 Personal history of traumatic brain injury; E66.9 Obesity, unspecified; Z68.31 Body mass index [BMI] 31.0-31.9, adult
CPT/HCPCS: 50590; 52310; 36415; 74018; 81001; 85610; 85730; 87086; C1769; J0690; J1100; J2250; J2405; J2704; J3010; J7030; J7120; Q9966

== ENCOUNTER 2023-02-19 14:08 | Outpatient (CLI) | payer BC, SELFPAY ==
--- NOTE | ~2023-02-19 | XR_ITS ---
XR abdomen/kub 1V 02/19/2023 14:31 Indication: Renal stones Procedure: KUB Comparison: 02/02/2023 Findings: There are left renal stones with decreased stone burden compared with prior study. Interval removal of left internal ureteral stent. IVC filter is identified with the superior tip at the L4 le kory. Bowel gas pattern nonobstructive. Impression: 1: Left nephrolithiasis with decreased stone burden compared with prior examination. Reviewed, dictated and finalized at location B. Impression: 1: Left nephrolithiasis with decreased stone burden compared with prior examina tion.
== END 2023-02-19 14:09 | disposition home or self-care (01) ==
PROVIDERS: PCP Family Medicine; Visit Provider Urology
DX: N20.0 Calculus of kidney (principal)
CPT/HCPCS: 74018

== ENCOUNTER 2023-08-25 07:42 | Outpatient (CLI) | payer BC, SELFPAY ==
--- NOTE | ~2023-08-25 | XR_ITS ---
EXAMINATION: XR abdomen/kub 1V DATE: 08/25/2023 08:07 INDICATION: Ureteral stone. TECHNIQUE: A supine view of the abdomen on 2 radiographs was obtained. COMPARISON: Abdomen radiographs 02/19/2023, CT abdomen and pelvis 01/07/2023 FINDINGS: There are no dilated loops of bowel. There is a filter in the inferior vena cava. The filte r is fractured. There is a 4 mm stone in right kidney lower pole. There are approximately 5 stones in left kidney measuring up to 5 mm. IMPRESSION: 1. Bilateral kidney stones. Reviewed, dictated and finalized at location A. IMPRESSION: 1. Bilateral kidney stones.
== END 2023-08-25 07:43 | disposition home or self-care (01) ==
PROVIDERS: PCP Family Medicine; Visit Provider Urology
DX: N20.1 Calculus of ureter (principal); N20.0 Calculus of kidney
CPT/HCPCS: 74018

== ENCOUNTER 2024-07-26 09:18 | Outpatient (CLI) | payer BC, SELFPAY ==
[2024-07-26 09:56] LABS: Alanine Aminotransferase 48 U/L (6-50); Albumin Level 4.7 g/dL (3.5-5.1); Alkaline Phosphatase 102 U/L (38-126); Anion Gap 10 mmol/L (4-12); Aspartate Amino Transferase 36 U/L (17-59); Blood Urea Nitrogen 21 mg/dL (9-20); Calcium 9.5 mg/dL (8.4-10.2); Carbon Dioxide 28 mmol/L (22-30); Chloride 101 mmol/L (98-107); Estimated Glomerular Filt Rate > 60; Glucose 113 mg/dL (65-110); Potassium 4.1 mmol/L (3.4-5.0); Sodium 139 mmol/L (137-145)
[2024-07-26 10:17] LABS: Creatinine Urine 113.4 mg/dL
[2024-07-26 10:22] LABS: MALB Creatinine Ratio 8.3 mg/g (0-30); Microalbumin Urine Random 9.4 mg/L (0-16.7)
[2024-07-26 11:25] LABS: Hemoglobin A1C 5.9 % (<5.7)
== END 2024-07-26 09:19 | disposition home or self-care (01) ==
LOC: ANHLAB 09:20
PROVIDERS: PCP Family Medicine; Visit Provider Family Medicine
DX: E11.9 Type 2 diabetes mellitus without complications (principal); I10 Essential (primary) hypertension
CPT/HCPCS: 36415; 80053; 82043; 83036

== ENCOUNTER 2025-02-06 13:31 | Outpatient (CLI) | payer BC, SELFPAY ==
--- OUTSIDE RECORDS SUMMARY | 2025-02-06 14:22 | XMS_ITS | Clinical Summary ---
Author Organization [facility] Address [address] [place] [address] Care Team Providers Care Spanish Teacher Name Role Phone Hua Hoffman MD Primary Care Provider [phone] Source Comments [facility],non-owned Affiliates and Associated Physician Practices is amultiple site organization consisting of ambulatory clinics and hospital sitesin [place], [place], [place] and [place]. This disclosure is being madepursuant to the Care Everywhere program and may not contain all information available regarding this patient. Last updated 18.[facility] [place] Allergies No known active allergies Medications * Be aware that medications may not be up to date on this document. Alwaysverify current medications with the patient. OtherIndication s:Blood pressure pill, unsure of name Reasons: Blood pressure pill, unsure of name Active lisinopril-hydr oCHLOROthiazide (PRINZIDE; ZESTORETIC) 10-12.5 MG tablet Take 1 tablet by mouth once daily 10/11/2019 Active rosuvastatin (CRESTOR) 10 MG tablet TAKE 1 TABLET BY MOUTH IN THE EVENING 10/11/2019 Active Active Problems No known active problems Social History Tobacco Use Types Packs/Day Years Used Date Smoking Tobacco: Never Smokeless Tobacco: Never Sex and Gender Information Value Date Recorded Sex Assigned at Not on file Legal Sex Male 6:32 AM SMOKE EATER Gender Identity Not on file Sexual Orientation Not on file Last Filed Vital Signs Vital Sign Reading Time Taken Comments Blood Pressure 122/74 04/04/2017 10:47 AM SMOKE EATER Pulse 88 04/04/2017 10:47 AM SMOKE EATER Temperature 37.6 C (99.6 F) 04/04/2017 10:47 AM SMOKE EATER Respiratory Rate 16 04/04/2017 10:47 AM SMOKE EATER Oxygen Saturation 97% 04/04/2017 10:47 AM SMOKE EATER Inhaled Oxygen Concentration - - Weight 99.8 kg (220 lb) 11/05/2019 12:05 PM CDT Height 175.3 cm (5' 9) 11/05/2019 12:05 PM CDT Body Mass Index 32.49 11/05/2019 12:05 PM CDT Plan of Treatment Health Maintenance Due Date Last Done Comments COLOGUARD (AGES 45-75) - COLON CA SCREENING 1974 COLON MONITORING 1974 COLONOSCOPY - COLON CA SCREENING 1974 CT COLONOGRAPHY - COLON CA SCREENING 1974 Colorectal Cancer Screening 1974 FIT - COLON CA SCREENING 1974 FLEX SIG - COLON CA SCREENING 1974 HIV SCREENING 1989 DTAP/TDAP/TD VACCINES (1 - Tdap) 1993 HEPATITIS B VACCINE (1 of 3 - 19+ 3-dose series) 1993 SCREENING FOR DIABETES 11/05/2019 3, 09/10/2012, 04/05/2012, Additional history exists DEPRESSION SCREENING 05/28/2024 PNEUMOCOCCAL VACCINE 50+ (1 of 1 - PCV) 2024 ZOSTER VACCINE (1 of 2) 2024 COVID-19 VACCINE (1 - 2023- season) 2025 INFLUENZA VACCINE (#1) 2025 HEPATITIS C SCREENING Completed 03/16/2010 HIB VACCINE Aged Out No longer eligi ble based on patient's age to complete this topic HPV VACCINE Aged Out No longer eligi ble based on patient's age to complete this topic MENINGOCOCCAL (Group B) VACCINE SHARED DECISION-MAKING Aged Out No longer eligible based on patient's age to complete this topic MENINGOCOCCAL GROUPS A/C/Y/W VACCINE Aged Out No longer eligible based on patient's age to complete this topic Procedures Procedure Name Priority Date/Time Associated Diagnosis Comments BASIC METABOLIC PANEL (CALCIUM TOTAL) Routine 10/26/2012 3:55 AM CDT HEPATITIS C ANTIBODY Routine 03/16/2010 10:33 AM CDT from Last 3 Months or Most Recently Relevant to Health Maintenance Results * (ABNORMAL) BASIC METABOLIC PANEL (CALCIUM TOTAL) (10/26/2012 3:55 AM CDT) BUN 10 7 - 26 mg/dL [facility] Creatinine 0.8 0.6 - 1.2 mg/dL [facility] eGFR by MDRD > 60 ML/MIN [facility] Comment: Chronic kidney disease: <60 ml/min Kidney failure: <15 ml/min Based on BSA of 1.73m2. Sodium 138 136 - 145 mmol/L [facility] Potassium 4.0 3.5 - 4.5 mmol/L [facility] Chloride 105 98 - 107 mmol/L [facility] CO2 21(L) 22 - 29 mmol/L [facility] Glucose 128(H) 70 - 115 mg/dL [facility] Calcium 9.3 8.4 - 10.2 mg/dL [facility] Anion Gap 16 8 - 18 [facility] BUN/Creatinine Ratio 12 7 - 23 [facility] Osmolality Calculation 272 270 - 300 mOsm/kg [facility] Venous blood specimen (specimen) 10/26/2012 3:55 AM CDT 10/26/2012 4:25 AM CDT us Kwadwo Porter MD LAB - CHEMISTRY ORDERABLES Elizabeth rousseau Result [address] [phone] * HEPATITIS C ANTIBODY (03/16/2010 10:33 AM CDT) Hepatitis C Antibody NON-REACTI VE NON-REACT [facility] Signal/Cutoff 0.10 <1.00 [facility] Comment: [facility] Performed at: [facility] [id number] [address] [id number] CRISTY MORENO DO,MPH 03/16/2010 10:3 3 AM CDT 03/17/2010 6:49 AM CDT us Historical Provider LAB - CHEMISTRY ORDERABLE S Final Result [facility] [id number] from Last 3 Months or Most Recently Relevant to Health Maintenance Insurance ANTHEM ANTHEM Care Teams Spanish Teacher Relationship Specialty Start Date End Date Hua Hoffman MD [address] [place] [address] [facility] - General 10/30/19
[2025-02-06 15:10] LABS: Hemoglobin A1C 5.9 % (<5.7)
[2025-02-06 15:14] LABS: Alanine Aminotransferase 31 U/L (6-50); Albumin Level 4.7 g/dL (3.5-5.1); Alkaline Phosphatase 105 U/L (38-126); Anion Gap 9 mmol/L (4-12); Aspartate Amino Transferase 42 U/L (17-59); Bilirubin,Total 1.4 mg/dL (0.2-1.3); Blood Urea Nitrogen 17 mg/dL (9-20); Calcium 9.4 mg/dL (8.4-10.2); Carbon Dioxide 32 mmol/L (22-30); Chloride 99 mmol/L (98-107); Cholesterol 118 mg/dL (0-200); Estimated Glomerular Filt Rate > 60; Glucose 88 mg/dL (65-110); HDL Direct 39 mg/dL; Hematocrit 49.5 % (42.0-52.0); Hemoglobin 16.6 g/dL (14.0-18.0); Immature Granulocyte Percent A 0.3 % (0-0.5); Lymphocytes Absolute Auto 1.72 K/mm3 (0.9-3.2); Mean Corpuscular HGB Conc 33.5 g/dl (32-36); Mean Corpuscular Hemoglobin 32.0 pg (26-34); Mean Corpuscular Volume 95.4 fl (80-100); Nucleated Red Blood Cells Absolute Auto 0.000 K/mm3 (0.0-0.012); Nucleated Red Blood Cells Perc 0.0 % (0.0-0.2); Platelet Count Result 243 k/mm3 (150-375); Potassium 4.2 mmol/L (3.4-5.0); Red Blood Count 5.19 M/mm3 (4.6-6.20); Sodium 140 mmol/L (137-145); Total Protein 8.9 g/dL (6.3-8.2); Triglycerides 83 mg/dL (<150); White Blood Count 7.8 K/mm3 (4.5-10.0)
[2025-02-06 15:46] LABS: Thyroid Stimulating Hormone Reflex 0.796 uIU/mL (0.465-4.68)
[2025-02-06 15:50] LABS: Prostate Specific Antigen 2.5 ng/mL (< OR = 4.0)
== END 2025-02-06 13:32 | disposition home or self-care (01) ==
LOC: ANHLAB 13:32
PROVIDERS: PCP Nurse Practitioner Family; Visit Provider Nurse Practitioner Family
DX: E78.5 Hyperlipidemia, unspecified (principal); E03.9 Hypothyroidism, unspecified; E11.9 Type 2 diabetes mellitus without complications; I10 Essential (primary) hypertension; E55.9 Vitamin D deficiency, unspecified; Z12.5 Encounter for screening for malignant neoplasm of prostate
CPT/HCPCS: 36415; 80053; 80061; 82306; 83036; 84153; 84443; 85025; G0103